=== PATIENT | female | born 1960 | race Caucasian/White ===

== ENCOUNTER 2020-09-15 09:18 | Emergency (ER) | payer BC ==
[2020-09-15 09:35] VITALS: BMI 39.0
[2020-09-15] MEDS ORDERED: KETOROLAC TROMETHAMINE 30 MG/1 ML VIAL IVPUSH ONE (11:01)
[2020-09-15 11:19] LABS: BASO % 0.4 % (0-2.0); EOS % 0.9 % (0-4.5); HEMATOCRIT 40.5 % (32.4-45.2); HEMOGLOBIN 13.7 GM/dL (10.7-15.3); LYMPH % 11.5 % (8-40); MCH 29.1 pg (25.7-33.7); MCHC 33.9 g/dl (32.0-36.0); MEAN CELL VOLUME 85.9 fl (80-96); MEAN PLT VOLUME 9.1 fl (7.5-11.1); MONO % 6.4 % (3.8-10.2); NEUT % 80.8 % (42.8-82.8); PLATELET COUNT 276 K/MM3 (134-434); RBC 4.71 M/mm3 (3.60-5.2); RDW 13.9 % (11.6-15.6)
[2020-09-15 11:24] LABS: CHLORIDE 107 mmol/L (98-107); POTASSIUM 4.1 mmol/L (3.5-5.1); SODIUM 140 mmol/L (136-145)
[2020-09-15 11:26] LABS: CALCIUM 9.4 mg/dL (8.5-10.1)
[2020-09-15 11:27] LABS: ALBUMIN 4.3 g/dl (3.4-5.0); ANION GAP 7 MMOL/L (8-16); BLOOD UREA NITROGEN 17.1 mg/dL (7-18); CO2 26 mmol/L (21-32); GLUCOSE,RANDOM 101 mg/dL (74-106)
[2020-09-15 11:30] LABS: CREATININE 0.9 mg/dL (0.55-1.3); SGOT/AST 17 U/L (15-37); SGPT/ALT 29 U/L (13-61)
[2020-09-15 11:31] LABS: BILIRUBIN,TOTAL 0.6 mg/dL (0.2-1)
[2020-09-15 11:32] LABS: TOT PROT 8.2 g/dl (6.4-8.2)
[2020-09-15 11:33] LABS: ALK PHOS 91 U/L (45-117)
[2020-09-15] MEDS ORDERED: KETOROLAC TROMETHAMINE 30 MG/1 ML VIAL ONE (11:38)
[2020-09-15 13:46] VITALS: BP 148/81; PULSE 73; TEMP 97.9
[2020-09-15] MEDS ORDERED: diazePAM CARPU-JECT 10 MG/2 ML DISP.SYRIN IVPUSH ONE (15:34)
[2020-09-15] MEDS ORDERED: diazePAM CARPU-JECT 10 MG/2 ML DISP.SYRIN ONE (16:12)
== END 2020-09-15 17:00 | disposition home or self-care (01) ==
LOC: JER 09:18
PROC: 3E033NZ Introduction of Analgesics, Hypnotics, Sedatives into Peripheral Vein, Percutaneous Approach (ICD-10-PCS; principal; 2020-09-15)
PROC: 3E0333Z Introduction of Anti-inflammatory into Peripheral Vein, Percutaneous Approach (ICD-10-PCS; 2020-09-15)
DX: R07.9 Chest pain, unspecified (principal)
CPT/HCPCS: 36415; 71046-TC-FY; 80053; 82550; 82553; 84484; 85025; 93005; 93010; 99284-25